=== PATIENT | female | born 1940 | race African-American/Black ===

== ENCOUNTER → 2016-07-22 | Outpatient (CLI) | payer OTHER ==
[~2016-07-22] MED LIST: ACETAMINOPHEN PO; ALEVE; ALEVE-D SINUS1 EACH; ALEVE220 M1 PO; ASPIRIN81 M2 PO; BENTYL20 MG PO; BETIMOL5 ML OD; COMBIGAN OD; EFFER-K 20 MEQ20 MEQ PO; FLEXERIL10 MG PO; LATANOPROST2.5 ML OU; LUMIGAN2.5 ML OP; MEDROL4 MG/DOSE- PO; NAPROSYN500 MG PO; NAPROXEN250 MG; OXAPROZIN600 MG PO; PEN-VEE K PO; PREDNISONE50 MG PO; TRUSOPT5 ML OU; TYLENOL #3 PO; VICODIN ES 7.51 EACH PO; VICODIN PO; VOLTAREN75 MG PO; ZOFRAN PO
--- NOTE | ~2016-07-22 | MY11 ---
[facility] A Service [facility] RADIOLOGY TEXT RESULTS PATIENT: JUSTIN TIWARI LOCATION: [facility] : 40 UNIT #: [id number] AGE: [address]: Chaparro Zamudio MD SEX: F ORDER DR: [id number] [facility] [address] [place], [place] [address] [id number] O MR#: [id number] Acc #: [id number] NAME: JUSTIN TIWARI : 1940 SEX: F STUDY DATE/TIME: 07/22/2016 15:25 UNIT: [facility] ROOM: STUDY DESCRIPTION: MY Mammogram Screening Dig Jeremy Attending Physician: Chaparro Zamudio M.D. Ordering Physician: Chaparro Zamudio M.D. Primary Care Physician: Chaparro Zamudio M.D. MEDICAL IMAGING REPORT This report is preliminary unless electronic signature is present EXAM Bilateral Digital Screening Mammogram with CAD INDICATION Breast cancer screening. 75-year-old asymptomatic female. No personal or family history of breast cancer. COMPARISON June 10, 2015, May 20, 2014 and May 13, 2013. FINDINGS The breasts are almost entirely fatty. No suspicious findings are present. IMPRESSION No mammographic evidence of malignancy. Annual screening mammography and clinical breast exam are recommended. A result letter will be sent to the patient. Patients over the age of 40 are entered into a reminder system with target due date for the next mammogram. BIRADS: 1 Negative Dictated by... Chaparro Kebede M.D. THIS IS AN ELECTRONICALLY VERIFIED REPORT Chaparro Kebede M.D. at 07/24/2016 7:00 PM AUTUMN/saira TD: 07/23/2016 11:34 [facility] A [facility] RADIOLOGY TEXT RESULTS PATIENT: JUSTIN TIWARI LOCATION: [facility] : 40 UNIT #: [id number] AGE: [address]: Chaparro Zamudio MD SEX: F ORDER DR: MARILYN #: [id number] MEDICAL IMAGING REPORT COPY
== END | disposition home or self-care (01) ==
LOC: CWCC 15:10
DX: Z12.31 Encounter for screening mammogram for malignant neoplasm of breast (principal)
CPT/HCPCS: G0202